=== PATIENT | female | born 1980 | race Caucasian/White ===

== ENCOUNTER 2019-02-01 14:48 | Emergency (ER) | payer OTHER | END 2019-02-01 15:15 | disposition home or self-care (01) | LOC: BURERS 14:48 | DX: K21.9 Gastro-esophageal reflux disease without esophagitis (principal); I10 Essential (primary) hypertension; F41.9 Anxiety disorder, unspecified; F32.9 Major depressive disorder, single episode, unspecified; Z79.899 Other long term (current) drug therapy | CPT/HCPCS: 99281 ==

== ENCOUNTER 2021-05-29 12:29 | Emergency (ER) | payer OTHER ==
[2021-05-29] MEDS ORDERED: Sulfameth/Trimethoprim DS 800-160mg TAB ONE (12:58)
== END 2021-05-29 13:03 | disposition home or self-care (01) ==
LOC: BURERS 12:29
DX: J01.90 Acute sinusitis, unspecified (principal); I10 Essential (primary) hypertension
CPT/HCPCS: 99283

== ENCOUNTER 2022-07-11 16:33 | Emergency (ER) | payer MEDICARE, OTHER | END 2022-07-11 17:38 | disposition home or self-care (01) | LOC: BURERS 16:33 | DX: J02.0 Streptococcal pharyngitis (principal); I10 Essential (primary) hypertension | CPT/HCPCS: 99282 ==

== ENCOUNTER 2022-11-04 19:07 | Emergency (ER) | payer MEDICARE, OTHER ==
[2022-11-04] MEDS ORDERED: diphenhydrAMINE 25 MG CAP ONE (19:25)
== END 2022-11-04 19:29 | disposition home or self-care (01) ==
LOC: BURERS 19:07
DX: K90.49 Malabsorption due to intolerance, not elsewhere classified (principal); I10 Essential (primary) hypertension; Z86.73 Personal history of transient ischemic attack (TIA), and cerebral infarction without residual deficits
CPT/HCPCS: 99283

== ENCOUNTER 2022-11-20 16:28 | Emergency (ER) | payer OTHER | END 2022-11-20 18:24 | disposition home or self-care (01) | LOC: BURERS 16:28 | DX: J02.0 Streptococcal pharyngitis (principal) | CPT/HCPCS: 71046; 87081; 87430 ==